=== PATIENT | female | born 1985 | race Caucasian/White ===

== ENCOUNTER 2017-12-18 16:10 | Inpatient (IN) ==
[2017-12-18] MEDS ORDERED: Acetaminophen 325 MG TABLET PO PRN (16:33)
[2017-12-18] MEDS ORDERED: MOM Conc 10 ML UD.LIQ PO PRN (16:33)
[2017-12-18] MEDS ORDERED: *HR* LORazepam 2 MG/ML VIAL IM PRN (16:33)
[2017-12-18] MEDS ORDERED: Mag Hydrox/Al Hydrox/Simeth 30 ML UDC PO PRN (16:33)
[2017-12-18] MEDS ORDERED: Haloperidol Lactate 5 MG/ML VIAL IM PRN (16:33)
[2017-12-18] MEDS ORDERED: *HR* LORazepam 1 MG TABLET PO PRN (16:33)
[2017-12-18] MEDS: Ibuprofen 400 MG TABLET PO PRN (19:15)
[2017-12-18] MEDS: Doxycycline 100 MG CAPSULE PO SCH (20:49)
[2017-12-18] MEDS: hydrOXYzine pamoate 25 MG CAPSULE PO PRN (20:49)
[2017-12-18] MEDS ORDERED: Nicotine 2 MG GUM BC PRN (20:58)
[2017-12-18] MEDS: traZODone 50 MG TABLET PO PRN (21:55)
[2017-12-19] MEDS: Doxycycline 100 MG CAPSULE PO SCH ×2 (08:13→21:11)
[2017-12-19] MEDS: Fluticasone Propionate Nasal 50 MCG/SPRAY BOTTLE NS SCH (08:15)
--- NOTE | 2017-12-19 14:17 | Psychiatry History & Physical ---
Date of Encounter: 12/20/17 Time of Encounter: 14:15 History of Present Illness Patient Stated Chief Complaint: as noted Medicare Admission Attestation: For traditional Medicare patients the provided hospital inpatient services are reasonable and necessary and in the case of services not specified as inpatient -only under 42 CFR 419.22 (n), that they are appropriately provided as inpatient services in accordance 42 CFR 412.3. For Critical Access Hospital the patient may reasonably be expected to be discharged or transferred to a hospital within 96 hours after admission to the Critical Access Hospital. Admitted From: Emergency Dept Plans for Post Hospital Care: Home History of Present Illness: Ms. Ponce is a 32 year old female The patient was taken to a [facility]. She was told that she had suicidal ideation with a plan to hurt herself. The patient denied this but was sent on an involuntary hold from there. During the process her 9-year-old child was taken into children services due to a dependency status. Today the patient was able to talk to children services and discuss some of her concerns. The reader is referred to the social work history for additional information regarding the hospitalization and previous psychiatric history Past Med Surg Social Fam HX - Past Medical History Source: patient Medical history: no medical history, asthma - Past Psychiatric History Psychiatric history: Reports: previous psychiatric hospitalization Family psychiatric history: Yes Family History of Suicide: Unknown - Past Surgical History Surgical History: no surgical history - Social History Smoking Status: Smoker, status unknown Smokeless Tobacco Status: No Alcohol use: none Drug use: none Occupational status: unemployed Current living situation: Homeless Activity Level: Independent ambulation Recent Out of Country Travel Within the Last 8 Weeks: No Exposure or Possible Exposure to Illness During Travel: No Medications & Allergies Albuterol Sulfate [Ventolin Hfa] 2 puff IH Q4H PRN 12/19/17 [History] Amitriptyline [Elavil] 25 mg PO HS 12/19/17 [History] Citalopram [CeleXA] 20 mg PO DAILY 12/19/17 [History] Doxycycline Hyclate 100 mg PO BID 12/19/17 [History] Methocarbamol [Robaxin] 500 mg PO HS 12/19/17 [History] predniSONE [PredniSONE] 20 mg PO BID 12/19/17 [History] 3 Allergy/AdvReac Type Severity Reaction Status Date / Time codeine Allergy Rash Verified 12/19/17 08:44 tramadol Allergy Rash Verified 12/19/17 08:44 Review of Systems ROS unobtainable: due to patient condition (the patuebt was extremey upset after visit with [facility] worker AND could not provide ROS) Constitutional: Denies: fever, chills, weakness, weight change Eyes: Denies: eye pain, vision change Ears, Nose, Throat: Denies: ear pain, throat pain, dental pain, hearing loss, congestion Cardiovascular: Denies: chest pain, palpitations, dyspnea on exertion Respiratory: Denies: cough, dyspnea, wheezes Gastrointestinal: Denies: abdominal pain, nausea, vomiting, diarrhea, constipation Genitourinary female: Denies: urgency, dysuria, frequency, abnormal menses, dyspareunia Musculoskeletal: Denies: joint swelling, joint pain Integumentary: Denies: rash, lesions, pruritus Neurological: Denies: headache, weakness, numbness, memory loss Endocrine: Denies: fatigue, heat or cold intolerance Hematologic/Lymphatic: Denies: easy bruising, lymphadenopathy Allergic/Immunologic: Denies: urticaria, itchy eyes Exam - HEENT Head exam IM: Present: atraumatic Eye exam IM: Present: EOMI ENT exam IM: Present: mucous membranes moist, normal oropharynx - Neurological Neurological exam: Present: CN II-XII intact - Respiratory Respiratory exam IM: Present: wheezes - GI/Abdominal GI/Abdominal exam IM: Present: normal bowel sounds - Extremities Extremities exam IM: Present: calf tenderness - Skin Skin exam IM: Present: warm - Constitutional Vitals: Temp Pulse Resp BP 98 F 86 16 122/82 12/19/17 08:30 12/19/17 08:30 12/19/17 08:30 12/19/17 08:30 General appearance: age & developmentally appropriate - Musculoskeletal Gait: normal Station: other Strength & Tone: normal for patient - Psychiatric Patient Orientation: Yes Person, Yes Time, Yes Place Level of alertness: Alert Behavior: calm Psychomotor activity: Normal Eye Contact: Maintains Eye Contact Mood Description: Depressed Affect description: dysphoric Speech Volume: Excessive Variation Speech pattern: normal rhythm, excessive Language & Vocabulary: grade school level Thought Process: Intact Thought Content: Yes Intact Perceptual Disturbances: Yes Reacting to internal stimuli Attention Span Ability: Capable of Focused Attention Memory Description: Grossly Intact Patient Reliability: Reliable Historian Fund of knowledge: Yes abstraction ability Intelligence Estimate: Average Judgment: Limited Insight: Minimal Assessment and Plan (1) Adjustment disorder with depressed mood Current visit: Yes Status: Acute Plan: Admit inpatient for safety and stabilization, Close observation Risks, benefits, side effects, alternatives discussed w/pt: Yes Patient agreeable to treatment: Yes Plans for Post Hospital Care: Home Estimated Length of Stay ( Days): 5 (2) Asthma Current visit: Yes Status: Acute Plan: Admit inpatient for safety and stabilization, Close observation, Monitor sleep Risks, benefits, side effects, alternatives discussed w/pt: Yes Patient agreeable to treatment: Yes Plans for Post Hospital Care: Home Estimated Length of Stay (Days): 5 Qualifiers: Asthma severity: moderate Asthma persistence: unspecified Asthma complication type: with acute exacerbation Qualified Code(s): J45.901 - Unspecified asthma with (acute) exacerbation
[2017-12-19] MEDS: Ibuprofen 400 MG TABLET PO PRN (21:11)
[2017-12-19] MEDS: hydrOXYzine pamoate 25 MG CAPSULE PO PRN (21:12)
[2017-12-19] MEDS: traZODone 50 MG TABLET PO PRN (21:12)
[2017-12-20] MEDS: Doxycycline 100 MG CAPSULE PO SCH ×2 (08:29→22:14)
[2017-12-20] MEDS: Fluticasone Propionate Nasal 50 MCG/SPRAY BOTTLE NS SCH (08:29)
[2017-12-20] MEDS ORDERED: Acetaminophen/Butalbital/CaffeineTABLET PO PRN (09:32)
--- NOTE | 2017-12-20 09:32 | Psychiatry Progress Note ---
Date of Encounter: 12/20/17 Time of Encounter: 09:30 Subjective Interval history: The patient is a 32-year-old white female. She has been diagnosed with adjustment disorder with depressed mood. While she may have a history of post manic stress disorder but was not clear at the time of admission if she met DSM 5 criteria. In the past she was diagnosed with post manic stress disorder under DSM-IV and DSM-IV TR versions. The patient also has migraine headaches. These are rather unspecified type they are associated with a throbbing headache and photophobia tiredness nausea and vomiting. These can occur sometimes up to once a day. She has never had specific treatment for but Does not drink caffeine excessively throughout the day.Caffeine is not cluster sleep or other disturbance. The patient has on amitriptyline which may be helpful as a preventative therapy. Patient is also been on citalopram for her depression. She reports that she is low doses of medicine she has no significant drug or alcohol problem she does recognize that she has a tobacco problem and that this is complicating her pre-existing condition of asthma. She has tried the nicotine gum but found that that was not well tolerated causing some nausea. She has requested Chantix to help with smoking cessation. He has not tried the nicotine lozenge. Patient is willing to sign in as a voluntary patient today and restart her citalopram. She would like to work on residential resources Review of Systems Respiratory: Reports: cough, wheezes Neurological: Reports: headache Psychiatric: Reports: depression, abnormal sleep pattern, mood swings Results - Vital Signs Vital Signs: Temp Pulse Resp BP 98.2 F 84 16 124/83 12/19/17 21:00 12/19/17 21:00 12/19/17 21:00 12/19/17 21:00 Assessment and Plan (1) Adjustment disorder with depressed mood Current visit: Yes Status: Acute Plan: Continue hospitalization, Close observation, Suicide Precautions per unit protocol, Secure weapons Risks, benefits, side effects, alternatives discussed w/pt: Yes Patient agreeable to treatment: Yes (2) Asthma Current visit: Yes Status: Acute Plan: Continue hospitalization, Close observation, Encourage participation in unit milieu, Group Therapy Risks, benefits, side effects, alternatives discussed w/pt: Yes Patient agreeable to treatment: Yes Qualifiers: Asthma severity: moderate Asthma persistence: unspecified Asthma complication type: with acute exacerbation Qualified Code(s): J45.901 - Unspecified asthma with (acute) exacerbation (3) Migraine without status migrainosus, not intractable Current visit: Yes Status: Chronic Plan: Continue hospitalization, Monitor sleep, Monitor appetite Risks, benefits, side effects, alternatives discussed w/pt: Yes Patient agreeable to treatment: Yes Qualifiers: Migraine type: chronic without aura Qualified Code(s): G43.709 - Chronic migraine without aura, not intractable, without status migrainosus (4) Tobacco use Current visit: Yes Status: Chronic Plan: Group Therapy, Monitor sleep, Monitor appetite Risks, benefits, side effects, alternatives discussed w/pt: Yes Patient agreeable to treatment: Yes Consult Discharge Plan - Plan Referrals: NONE,PCP [Primary Care Provider] - Psychiatry Exam - Constitutional Vitals: Temp Pulse Resp BP 98.2 F 84 16 124/83 12/19/17 21:00 12/19/17 21:00 12/19/17 21:00 12/19/17 21:00 General appearance: age & developmentally appropriate, disheveled - Musculoskeletal Gait: normal Station: slouched Strength & Tone: normal for patient - Psychiatric Patient Orientation: Yes Person, Yes Time, Yes Place, Yes Circumstance Level of alertness: Alert Behavior: guarded Psychomotor activity: Normal Eye Contact: Maintains Eye Contact Mood Description: Depressed Affect description: constricted Speech Volume: Normal Speech pattern: clear Language & Vocabulary: consistent with education Thought Process: Intact, Logical, Linear Thought Content: Yes Suicidal ideation Attention Span Ability: Capable of Sustained Attention Memory Description: Grossly Intact Patient Reliability: Reliable Historian Fund of knowledge: Yes above average Intelligence Estimate: Average Judgment: Fair Insight: Partial
[2017-12-20] MEDS ORDERED: SUMAtriptan succinate 50 MG TABLET PO PRN (09:33)
[2017-12-20] MEDS: hydrOXYzine pamoate 25 MG CAPSULE PO PRN (21:17)
[2017-12-20] MEDS: traZODone 50 MG TABLET PO PRN (21:17)
[2017-12-21] MEDS: Fluticasone Propionate Nasal 50 MCG/SPRAY BOTTLE NS SCH (08:23)
[2017-12-21] MEDS: Doxycycline 100 MG CAPSULE PO SCH (08:23)
--- NOTE | 2017-12-21 09:30 | Discharge Summary ---
Date of Encounter: 12/21/17 Time of Encounter: 09:15 Diagnosis - Discharge Diagnosis (1) Adjustment disorder with depressed mood Status: Acute (2) Asthma Status: Acute Qualifiers: Asthma severity: moderate Asthma persistence: unspecified Asthma complication type: with acute exacerbation Qualified Code(s): J45.901 - Unspecified asthma with (acute) exacerbation (3) Migraine without status migrainosus, not intractable Status: Chronic Qualifiers: Migraine type: chronic without aura Qualified Code(s): G43.709 - Chronic migraine without aura, not intractable, without status migrainosus (4) Tobacco use Status: Chronic Medications - Discharge Medications Prescriptions: Albuterol Sulfate [Ventolin Hfa] 2 puff IH Q4H PRN 30 Days #1 [email or web address] PRN Reason: Shortness Of Breath Amitriptyline [Elavil] 25 mg PO HS 30 Days #30 tablet Citalopram [CeleXA] 20 mg PO DAILY 30 Days #30 tablet Doxycycline 100 mg PO BID 5 Days #10 capsule hydrOXYzine pamoate [HydrOXYzine Pamoate] 25 mg PO TID PRN 30 Days #30 capsule PRN Reason: Anxiety Methocarbamol [Robaxin] 500 mg PO HS 30 Days #30 tablet Pseudoephedrine [Sudafed] 60 mg PO TID PRN 10 Days #30 tablet PRN Reason: Congestion traZODone [TraZODone] 50 mg PO HS PRN 30 Days #30 tablet PRN Reason: insomina Albuterol Sulfate [Ventolin Hfa] 2 puff IH Q4H PRN 30 Days #1 [email or web address] [Rx] Amitriptyline [Elavil] 25 mg PO HS 30 Days #30 tablet 12/21/17 [Rx] Citalopram [CeleXA] 20 mg PO DAILY 30 Days #30 tablet 12/21/17 [Rx] Doxycycline 100 mg PO BID 5 Days #10 capsule 12/21/17 [Rx] Methocarbamol [Robaxin] 500 mg PO HS 30 Days #30 tablet 12/21/17 [Rx] Pseudoephedrine [Sudafed] 60 mg PO TID PRN 10 Days #30 tablet 12/21/17 [Rx] hydrOXYzine pamoate [HydrOXYzine Pamoate] 25 mg PO TID PRN 30 Days #30 capsule 12/21/17 [Rx] traZODone [TraZODone] 50 mg PO HS PRN 30 Days #30 tablet 12/21/17 [Rx] 3 Allergy/AdvReac Type Severity Reaction Status Date / Time codeine Allergy Rash Verified 12/19/17 08:44 tramadol Allergy Rash Verified 12/19/17 08:44 Provider Date of admission: 12/18/17 16:10 Primary care physician: PCP NONE Discharging clinician: Irvin Hagan Psychiatry Exam - Constitutional Vitals: Temp Pulse Resp BP 98.4 F 94 16 128/94 12/20/17 20:30 12/20/17 20:30 12/20/17 20:30 12/20/17 20:30 General appearance: age & developmentally appropriate, well-groomed, well- nourished - Musculoskeletal Gait: normal Station: relaxed Strength & Tone: normal for patient - Psychiatric Patient Orientation: Yes Person, Yes Time, Yes Place Level of alertness: Alert Behavior: calm, cooperative Psychomotor activity: Normal Eye Contact: Maintains Eye Contact Mood Description: Euthymic/stable Affect description: congruent with mood, full range Speech Volume: Normal Speech pattern: normal rate, normal rhythm, normal tone, fluent, spontaneous Language & Vocabulary: consistent with education Thought Process: Linear, Goal Oriented Thought Content: No Suicidal ideation, No Homicidal ideation, No Overt delusions Perceptual Disturbances: No Auditory hallucinations, No Visual hallucinations Attention Span Ability: Capable of Focused Attention Memory Description: Grossly Intact Patient Reliability: Reliable Historian Fund of knowledge: Yes abstraction ability, Yes aware of current events Intelligence Estimate: Average Judgment: Good Insight: Full Hospital Course Hospital course: Ms. Ponce is a 32 year old female The patient initially presented with angry and irritable mood. She reported that while seen in the local emergency room she did not have suicidal ideation. Nonetheless because of the potential for risky behavior and because of increased psychosocial stresses. The patient was hospitalized for her safety. After observation on the unit it was clear that the patient did not have suicidal ideation with plan. She had previous diagnoses of posttraumatic stress disorder but did not need to DSM-V criteria at the time of discharge. The patient did have an adjustment disorder with separation from family place of residence. And the patient had to relocate at the time of discharge. The patient was under some ongoing treatment for asthma and was restarted on antibiotic medicines she was restarted on citalopram for her adjustment disorder with depressed mood. She also reported migraine headaches and was offered sumatriptan and Fioricet. Is on amitriptyline to help with prevention. The patient has tobacco use and did not tolerate nicotine gum with a nicotine patch. She requested Chantix at the time of discharge and the side effects were discussed with patient she planned to follow-up with her primary care physician for this. The patient did not requires prednisone but did have an albuterol inhaler as needed. Arrangements were made for discharge and follow-up. Patient was able to attend to the needs of her child. Discharge medicines were sent and the additional prescription for the starter pack for Chantix was written for the patient. Time spent discussing smoking cessation with patient: more than 10 minutes Does patient wish to continue nicotine replacement upon disc: Yes (Chantix starter pack) - Time Spent with Patient Total time spent providing and/or coordinating discharge services: Less than 30 minutes Assessment and Plan - Patient/Caregiver Discharge Instructions Activity: resume usual activities as tolerated Diet: regular diet - Follow up Plan Follow up with: [facility] [employer] [facility] [place] [facility] [Outside] (The above appointment is with Miranda for outpatient [facility] counseling and case management services.) [facility] [facility] [place] [Outside] - 01/15/18 3:30 pm (The above appointment is with Pernell Apple for outpatient psychiatric assessment and medication management services. Please arrive 30 minutes early to complete paperwork. Please bring your photo ID (bring proof of address if you do not have an ID) and medication list. The above appointment(s) reflects first availability. You may contact the office regularly to check for cancellations that may allow you to be seen sooner. ) Overall status at discharge: Stable Disposition: Home, Self-Care Quality - Multiple Antipsychotics Patient discharged on 2 or more antipsychotic medications: No Procedures - Procedures Procedures: Medication Management, Crisis Stabilization, Supportive Therapy, Group Therapy, Psychoeducational Therapy
[2017-12-21 12:32] VITALS: BP 122/81
== END 2017-12-21 18:45 | disposition home or self-care (01) | DRG 754 ==
LOC: 1ANU 16:10
PROVIDERS: ADMIT Psychiatry & Neurology Forensic Psychiatry; ATTEND Psychiatry & Neurology Forensic Psychiatry